=== PATIENT | female | born 1995 | race African-American/Black ===

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

== ENCOUNTER 2017-06-25 14:39 | Emergency (ER) | payer MEDICARE ==
[~2017-06-25] VITALS: Ht 170.2 cm; Wt 95.0 kg
[~2017-06-25 14:39] MED LIST changes: +BACT800T5 PO; +NAPR500T PO; +ZOFR4TAB3 SL
[2017-06-25 14:40] VITALS: BP 124/80; PULSE 78; RESP 16; TEMP 98.4; O2SAT 97
--- NOTE | 2017-06-25 17:52 | PD ---
HPI Chief Complaint: GI Complaint Time Seen by Provider: 17:25 Travel History International Travel<30 days: No Contact w/Intl Traveler<30days: No Traveled to known affect area: No History of Present Illness HPI 21-year-old female here for bilateral flank pain times one day and sinus pain and pressure 3 days. Patient reports she has had similar flank pain with previous UTIs in the past. She denies fever or chills. She reports 2-3 episodes of nausea and vomiting yesterday. She denies cough, chest pain, shortness of breath, abdominal pain, diarrhea, vaginal discharge. Symptoms severity is moderate. No alleviating factors. PFSH Past Medical History ADHD: No Cancer: No Cardiovascular Problems: No Diabetes: No Psychiatric: No Immunizations Current: Yes Migraines: Yes (WHEN YOUNGER) Seizures: No Thyroid Disease: No Ulcer: No ?: Not : 0 Past Surgical History Other Surgery: No Social History Alcohol Use: No Tobacco Use: No Substance Use: No Allergies-Medications (Allergen,Severity, Reaction): Coded Allergies: No Known Allergies (Unverified , 06/25/17) Reported Meds & Prescriptions Reported Meds & Active Scripts Active Ceftin (Cefuroxime Axetil) 250 Mg Tab 250 Mg PO BID 7 Days Reported Naproxen 500 Mg Tab 500 Mg PO BID Zofran Odt (Ondansetron Odt) 4 Mg Tab 4 Mg SL Q6HR PRN Bactrim DS (Sulfamethoxazole-Trimethoprim) 800-160 Mg Tab 1 Tab PO BID No Current Meds (Miscellaneous Medication) Misc Review of Systems Except as stated in HPI: all other systems reviewed are Neg General / Constitutional: No: Fever HENT: Positive: Congestion Physical Exam Narrative GENERAL: SKIN: Warm and dry. HEAD: Normocephalic. Frontal sinus tenderness EYES: No scleral icterus. No injection or drainage. NECK: Supple, trachea midline. No JVD or lymphadenopathy. CARDIOVASCULAR: Regular rate and rhythm without murmurs, gallops, or rubs. RESPIRATORY: Breath sounds equal bilaterally. No accessory muscle use. GASTROINTESTINAL: Abdomen soft, non-tender, nondistended. MUSCULOSKELETAL: No cyanosis, or edema. BACK: Nontender without obvious deformity. Mild bilateral CVA tenderness. Data Data Last Documented VS Vital Signs Date Time Temp Pulse Resp B/P (MAP) Pulse Ox O2 Delivery O2 Flow Rate FiO2 10/18/17 14:40 98.4 78 16 124/80 (95) 97 Room Air Orders Orders Urinalysis - C+S If Indicated (06/25/17 17:46) Ed Urine Pregnancytest Poc (06/25/17 17:46) Urine Culture (06/25/17 17:55) Labs Laboratory Tests Test 06/25/17 17:55 Urine Color YELLOW Urine Turbidity HAZY Urine pH 8.0 Urine Specific [place] 1.013 Urine Protein TRACE mg/dL Urine Glucose (UA) NEG mg/dL Urine Ketones NEG mg/dL Urine Occult Blood SMALL Urine Nitrite POS Urine Bilirubin NEG Urine Urobilinogen LESS THAN 2.0 MG/DL Urine Leukocyte Esterase MOD Urine RBC 2 /hpf Urine WBC 22 /hpf Urine Squamous Epithelial Cells 3 /hpf Urine Bacteria OCC /hpf Urine Mucus FEW /lpf Microscopic Urinalysis Comment CULTURE INDICATED MDM Medical Decision Making Medical Screen Exam Complete: Yes Emergency Medical Condition: Yes Interpretation(s) UA: Positive for nitrates, moderate leukocytes, 22 wbc's, occasional bacteria Differential Diagnosis UTI, pyelonephritis, sinusitis, viral illness Narrative Course 21-year-old female here for evaluation of bilateral flank pain times one day & sinus pain and pressure 3 days. On physical exam patient is well-appearing she has mild frontal sinus tenderness. She has mild bilateral CVA tenderness. Abdomen soft and nontender. Her vital signs are stable. She is nontoxic- appearing. UA: Positive for nitrates, moderate leukocytes, 22 WBC, occasional bacteria URINE : Negative Diagnosis Primary Impression: UTI (urinary tract infection) Qualified Codes: N39.0 - Urinary tract infection, site not specified Additional Impression: Sinusitis Qualified Codes: J01.10 - Acute frontal sinusitis, unspecified Referrals: [facility] Additional Instructions: Take the antibiotics as prescribed. Rest, stay hydrated. Follow-up with the [place] [facility]. Return to emergency department if you develop new or worsening symptoms Scripts Cefuroxime (Ceftin) 250 Mg Tab 250 MG PO BID for 7 Days, #14 TAB Prov: Poppy Haynes 06/25/17 Disposition: 01 DISCHARGE HOME Condition: Stable Poppy Haynes Jun 25, 2017 17:52
[2017-06-25 18:15] LABS: BACTERIA, URINE OCC /hpf; BLOOD, URINE SMALL (NEG); COMMENT (UR) CULTURE INDICATED; CULTURE IF INDICATED CULTURE INDICATED; GLUCOSE,URINE NEG (NEG); KETONE, URINE NEG (NEG); MUCUS URINE FEW /lpf (OCC); NITRITE,URINE POS (NEG); SQUAMOUS EPITHELIAL CELL URINE 3 /hpf (0-5); URINE COLOR YELLOW (YELLW/STRAW)
[2017-06-25] MEDS ORDERED: CEFU1TAB42 PO (18:39)
[2017-06-25] MEDS ORDERED: IBUPROFEN 800 MG TAB PO ONE (19:15)
[2017-06-25] MEDS ORDERED: KETOROLAC TROMETHAMINE 60 MG/2 ML (IM) VIAL IM ONE (19:30)
== END 2017-06-25 20:00 | disposition home or self-care (01) ==
LOC: NEPD 14:39
DX: N39.0 Urinary tract infection, site not specified (principal); J01.10 Acute frontal sinusitis, unspecified; B96.20 Unspecified Escherichia coli [E. coli] as the cause of diseases classified elsewhere
CPT/HCPCS: 81001; 84703; 87077; 87086; 87186; 96372; 99284; J1885